=== PATIENT | male | born 1965 | race Caucasian/White ===

== ENCOUNTER → 2016-11-29 | Outpatient (CLI) | payer OTHER ==
--- NOTE | 2016-11-29 10:09 | REP ---
Clinical: Primary hypertension . Comparison: 03/26/2014 . Technique: PA and lateral. Findings: The mediastinum and cardiac silhouette are normal. The lung esquivel are clear and without acute consolidation, effusion, or pneumothorax. The skeletal structures are intact and normal. Impression: 1. No acute cardiopulmonary process. Signed by Kulwinder Puckett MD 11/29/2016 10:00 A
[2016-11-29 10:21] LABS: MEAN CORPUSCULAR HEMOGLOBIN 30.5 pg (27.0-33.0); MEAN CORPUSCULAR HGB CONC 34.2 g/dl (32.0-36.5); MEAN CORPUSCULAR VOLUME 89.2 fl (80.0-96.0); RED CELL DISTRIBUTION WIDTH 12.6 % (11.5-14.5); WHITE BLOOD COUNT 5.7 K/mm3 (4.0-10.0)
[2016-11-29 10:43] LABS: ALBUMIN 3.8 GM/DL (3.2-5.2); ALBUMIN/GLOBULIN RATIO 0.97 (1.00-1.93); ALKALINE PHOSPHATASE 78 U/L (45-117); ALT/SGPT 48 U/L (12-78); ANION GAP 8 MEQ/L (8-16); AST/SGOT 19 U/L (15-37); BILIRUBIN,TOTAL 0.4 MG/DL (0.2-1.0); BLOOD UREA NITROGEN 23 MG/DL (7-18); CALCIUM LEVEL 9.2 MG/DL (8.5-10.1); CARBON DIOXIDE LEVEL 28 MEQ/L (21-32); CHLORIDE LEVEL 99 MEQ/L (98-107); CHOLESTEROL LEVEL 186 MG/DL (<200); CREATININE FOR GFR 1.02 MG/DL (0.70-1.30); GLOMERULAR FILTRATION RATE > 60.0 (>60); POTASSIUM SERUM 4.6 MEQ/L (3.5-5.1); SODIUM LEVEL 135 MEQ/L (136-145); TOTAL PROTEIN 7.7 GM/DL (6.4-8.2); TRIGLYCERIDES LEVEL 359 MG/DL (<150)
[2016-11-29 10:46] LABS: GLUCOSE, FASTING 411 MG/DL (70-105)
--- NOTE | 2016-11-30 05:21 | ECGEPIP ---
Stationary ECG Study [facility] Test Date: 2016-11-29 Pat Name: ANGEL HOFFMAN Department: Room: - Gender: M Manager Pe: CHRISTOPHER : 1965 Requested By: Tabatha Gipson Order Number: [id number] Reading MD: Rian Fleming Measurements Intervals Post Rate: 95 P: 33 IN: 176 QRS: 11 QRSD: 117 T: -2 QT: 339 QTc: 426 Interpretive Statements Normal sinus rhythm Intraventricular conduction delay No significant change when compared to prior tracing of 11/18/2014 Electronically Signed On 11-30-2016 5:20:50 EDT by Rian Fleming
== END ==
LOC: M LAB 09:33
PROVIDERS: ATTEND Family Medicine
DX: I10 Essential (primary) hypertension (principal)

== ENCOUNTER → 2017-01-11 | Outpatient (REF) | payer OTHER ==
[~2017-01-11] MED LIST: ASPI1TAB PO; HYDR25TAB PO; JANU100T PO; KEFL500C7 PO; METF1000 PO; PRAV40TA2 PO; TYLETAB14 PO; VALS1TAB47 PO; VICO10TA11 PO
== END ==
LOC: M LAB REF 16:50
PROVIDERS: ATTEND Podiatrist
DX: M86.171 Other acute osteomyelitis, right ankle and foot (principal)

== ENCOUNTER → 2017-02-27 | Outpatient (CLI) | payer OTHER ==
[2017-02-27 11:04] LABS: MEAN CORPUSCULAR HEMOGLOBIN 31.2 pg (27.0-33.0); MEAN CORPUSCULAR HGB CONC 34.9 g/dl (32.0-36.5); MEAN CORPUSCULAR VOLUME 89.2 fl (80.0-96.0); RED CELL DISTRIBUTION WIDTH 13.4 % (11.5-14.5); WHITE BLOOD COUNT 5.4 K/mm3 (4.0-10.0)
[2017-02-27 11:23] LABS: ALBUMIN 3.8 GM/DL (3.2-5.2); ALBUMIN/GLOBULIN RATIO 0.97 (1.00-1.93); ALKALINE PHOSPHATASE 59 U/L (45-117); ALT/SGPT 76 U/L (12-78); ANION GAP 7 MEQ/L (8-16); AST/SGOT 34 U/L (15-37); BILIRUBIN,TOTAL 0.5 MG/DL (0.2-1.0); BLOOD UREA NITROGEN 16 MG/DL (7-18); CALCIUM LEVEL 8.9 MG/DL (8.5-10.1); CARBON DIOXIDE LEVEL 29 MEQ/L (21-32); CHLORIDE LEVEL 100 MEQ/L (98-107); CHOLESTEROL LEVEL 147 MG/DL (<200); CREATININE FOR GFR 1.08 MG/DL (0.70-1.30); GLOMERULAR FILTRATION RATE > 60.0 (>56); GLUCOSE, FASTING 260 MG/DL (70-105); POTASSIUM SERUM 4.4 MEQ/L (3.5-5.1); SODIUM LEVEL 136 MEQ/L (136-145); TOTAL PROTEIN 7.7 GM/DL (6.4-8.2); TRIGLYCERIDES LEVEL 220 MG/DL (<150)
== END ==
LOC: M LAB 10:22
PROVIDERS: ATTEND Family Medicine
DX: I10 Essential (primary) hypertension (principal); E03.9 Hypothyroidism, unspecified; E11.9 Type 2 diabetes mellitus without complications

== ENCOUNTER → 2017-09-03 | Outpatient (CLI) | payer OTHER ==
[2017-09-03 12:48] LABS: ESTIMATED AVERAGE GLUCOSE 255 MG/DL (60-110); HEMOGLOBIN A1c 10.5 %
[2017-09-03 12:52] LABS: GLUCOSE, FASTING 244 MG/DL (70-105)
== END ==
LOC: M LAB 11:17
DX: E11.9 Type 2 diabetes mellitus without complications (principal); I10 Essential (primary) hypertension

== ENCOUNTER → 2018-07-30 | Outpatient (CLI) | payer OTHER ==
[2018-07-30 12:20] LABS: HEMATOCRIT 45.2 % (42.0-52.0); HEMOGLOBIN 15.4 g/dl (13.5-17.5); MEAN CORPUSCULAR HEMOGLOBIN 29.9 pg (27.0-33.0); MEAN CORPUSCULAR HGB CONC 34.1 g/dl (32.0-36.5); MEAN CORPUSCULAR VOLUME 87.8 fl (80.0-96.0); PLATELET COUNT, AUTOMATED 243 10^3/uL (150-450); RED BLOOD COUNT 5.15 10^6/uL (4.30-6.10); RED CELL DISTRIBUTION WIDTH 12.3 % (11.5-14.5); WHITE BLOOD COUNT 6.7 10^3/uL (4.0-10.0)
[2018-07-30 12:50] LABS: ALBUMIN 3.8 GM/DL (3.2-5.2); ALBUMIN/GLOBULIN RATIO 1.03 (1.00-1.93); ALKALINE PHOSPHATASE 73 U/L (45-117); ALT/SGPT 38 U/L (12-78); ANION GAP 7 MEQ/L (8-16); AST/SGOT 16 U/L (7-37); BILIRUBIN,TOTAL 0.5 MG/DL (0.2-1.0); BLOOD UREA NITROGEN 23 MG/DL (7-18); CALCIUM LEVEL 9.2 MG/DL (8.5-10.1); CARBON DIOXIDE LEVEL 29 MEQ/L (21-32); CHLORIDE LEVEL 100 MEQ/L (98-107); CHOLESTEROL LEVEL 180 MG/DL (<200); CHOLESTEROL RISK RATIO 6.206 (<5); CREATININE FOR GFR 1.12 MG/DL (0.70-1.30); GLOMERULAR FILTRATION RATE > 60.0 (>56); GLUCOSE, FASTING 377 MG/DL (70-100); HDL CHOLESTEROL 29 MG/DL (>40); LDL CHOLESTEROL 122 MG/DL (<100); NON-HDL-C 151 MG/DL; POTASSIUM SERUM 4.6 MEQ/L (3.5-5.1); PROSTATIC SPECIFIC AG MONITOR 0.4 NG/ML (< 4.0); SODIUM LEVEL 136 MEQ/L (136-145); TESTOSTERONE 205 NG/DL (241-827); TOTAL PROTEIN 7.5 GM/DL (6.4-8.2); TRIGLYCERIDES LEVEL 147 MG/DL (<150)
[2018-07-30 13:13] LABS: ESTIMATED AVERAGE GLUCOSE 292 MG/DL (60-110); HEMOGLOBIN A1c 11.8 %
== END ==
LOC: M LAB 11:28
DX: M54.30 Sciatica, unspecified side (principal); E11.9 Type 2 diabetes mellitus without complications; M16.12 Unilateral primary osteoarthritis, left hip; M25.78 Osteophyte, vertebrae; M51.36 Other intervertebral disc degeneration, lumbar region; M51.37 Other intervertebral disc degeneration, lumbosacral region
CPT/HCPCS: 72110

== ENCOUNTER → 2018-08-02 | Outpatient (CLI) | payer OTHER | LOC: M RAD 08:55 | DX: I82.432 Acute embolism and thrombosis of left popliteal vein (principal); I82.412 Acute embolism and thrombosis of left femoral vein; M79.662 Pain in left lower leg | CPT/HCPCS: 93971 ==

== ENCOUNTER → 2019-01-13 | Outpatient (CLI) | payer OTHER ==
[~2019-01-13] MED LIST changes: -ASPI1TAB PO; +ASPI81TA26 PO; +KEFL500C17 PO; -KEFL500C7 PO; -METF1000 PO; +METF10004 PO; -VALS1TAB47 PO; +VALS1TAB67 PO
[2019-01-13 11:33] LABS: HEMOGLOBIN A1c 9.2 %
[2019-01-13 11:34] LABS: HEMATOCRIT 41.1 % (42.0-52.0); HEMOGLOBIN 13.7 g/dl (13.5-17.5); MEAN CORPUSCULAR HEMOGLOBIN 29.3 pg (27.0-33.0); MEAN CORPUSCULAR HGB CONC 33.3 g/dl (32.0-36.5); PLATELET COUNT, AUTOMATED 259 10^3/uL (150-450); RED BLOOD COUNT 4.67 10^6/uL (4.30-6.10); WHITE BLOOD COUNT 4.8 10^3/uL (4.0-10.0)
[2019-01-13 11:48] LABS: ALBUMIN 3.7 GM/DL (3.2-5.2); ALT/SGPT 42 U/L (12-78); BILIRUBIN,TOTAL 0.5 MG/DL (0.2-1.0); BLOOD UREA NITROGEN 17 MG/DL (7-18); CALCIUM LEVEL 9.1 MG/DL (8.5-10.1); CARBON DIOXIDE LEVEL 30 MEQ/L (21-32); CHLORIDE LEVEL 106 MEQ/L (98-107); CHOLESTEROL LEVEL 120 MG/DL (<200); CHOLESTEROL RISK RATIO 3.333 (<5); CREATININE FOR GFR 0.92 MG/DL (0.70-1.30); GLOMERULAR FILTRATION RATE > 60.0 (>56); GLUCOSE, FASTING 114 MG/DL (70-100); HDL CHOLESTEROL 36 MG/DL (>40); LDL CHOLESTEROL 71 MG/DL (<100); NON-HDL-C 84 MG/DL; POTASSIUM SERUM 4.6 MEQ/L (3.5-5.1); PROSTATIC SPECIFIC AG MONITOR 0.36 NG/ML (< 4.00); SODIUM LEVEL 140 MEQ/L (136-145); TOTAL PROTEIN 7.4 GM/DL (6.4-8.2); TRIGLYCERIDES LEVEL 67 MG/DL (<150)
[2019-01-13 11:49] LABS: TESTOSTERONE 289 NG/DL (241-827); TOTAL 25(OH) VITAMIN D 25.5 NG/ML (30.0-100.0)
== END ==
LOC: M LAB 10:19
PROVIDERS: ATTEND Family Medicine
DX: R53.83 Other fatigue (principal); I10 Essential (primary) hypertension; E11.9 Type 2 diabetes mellitus without complications

== ENCOUNTER → 2019-10-22 | Outpatient (CLI) | payer OTHER ==
[2019-10-22 09:32] LABS: HEMATOCRIT 44.1 % (42.0-52.0); HEMOGLOBIN 14.6 g/dl (13.5-17.5); MEAN CORPUSCULAR HEMOGLOBIN 29.7 pg (27.0-33.0); MEAN CORPUSCULAR HGB CONC 33.1 g/dl (32.0-36.5); MEAN CORPUSCULAR VOLUME 89.6 fl (80.0-96.0); PLATELET COUNT, AUTOMATED 263 10^3/uL (150-450); RED BLOOD COUNT 4.92 10^6/uL (4.30-6.10); WHITE BLOOD COUNT 7.2 10^3/uL (4.0-10.0)
[2019-10-22 10:02] LABS: HEMOGLOBIN A1c 8.9 %
[2019-10-22 10:07] LABS: ALBUMIN 3.9 GM/DL (3.2-5.2); ALT/SGPT 51 U/L (12-78); BILIRUBIN,TOTAL 0.5 MG/DL (0.2-1.0); BLOOD UREA NITROGEN 25 MG/DL (7-18); CALCIUM LEVEL 9.1 MG/DL (8.5-10.1); CARBON DIOXIDE LEVEL 27 MEQ/L (21-32); CHLORIDE LEVEL 105 MEQ/L (98-107); CHOLESTEROL LEVEL 136 MG/DL (<200); CREATININE FOR GFR 1.04 MG/DL (0.70-1.30); GLOMERULAR FILTRATION RATE > 60.0 (>56); GLUCOSE, FASTING 169 MG/DL (70-100); HDL CHOLESTEROL 32 MG/DL (>40); LDL CHOLESTEROL 83 MG/DL (<100); NON-HDL-C 104 MG/DL; POTASSIUM SERUM 4.9 MEQ/L (3.5-5.1); SODIUM LEVEL 140 MEQ/L (136-145); TESTOSTERONE 269 NG/DL (241-827); TOTAL PROTEIN 7.4 GM/DL (6.4-8.2); TRIGLYCERIDES LEVEL 105 MG/DL (<150)
== END ==
LOC: M LAB 08:20
PROVIDERS: ATTEND Family Medicine
DX: I10 Essential (primary) hypertension (principal)

== ENCOUNTER 2020-12-29 15:10 | Emergency (ER) | payer OTHER ==
[~2020-12-29] VITALS: Ht 200.7 cm; Wt 152.3 kg
[~2020-12-29 15:10] MED LIST changes: +HYDR-3490 PO; -HYDR25TAB PO
[2020-12-29] MEDS ORDERED: MORPHINE 4 MG/ML 1ML VIAL/SYRINGE (J2270) IV ONE (17:25)
[2020-12-29] MEDS ORDERED: LIDOCAINE 5% (LIDODERM) PATCH TD ONE (17:25)
[2020-12-29] MEDS ORDERED: ONDANSETRON 4MG/2ML VIAL IV ONE (17:25)
[2020-12-29] MEDS ORDERED: CYCLOBENZAPRINE 10MG TABLET PO ONE (17:25)
[2020-12-29 18:14] LABS: APPEARANCE, URINE CLEAR (CLEAR); BACTERIA, URINE AUTO NEGATIVE (NEGATIVE); BILIRUBIN, URINE AUTO NEGATIVE (NEGATIVE); BLOOD, URINE BLOOD 2+ (NEGATIVE); COLOR, URINE YELLOW (YELLOW); GLUCOSE, URINE (UA) AUTO 3+ mg/dL (NEGATIVE); KETONE, URINE AUTO NEGATIVE (NEGATIVE); LEUKOCYTE ESTERASE, URINE AUTO NEGATIVE (NEGATIVE); NITRITE, URINE AUTO NEGATIVE (NEGATIVE); PROTEIN, URINE AUTO 2+ mg/dL (NEGATIVE); RBC, URINE AUTO 7 /HPF (0-3); SPECIFIC GRAVITY URINE AUTO 1.013 (1.002-1.035); SQUAMOUS EPITHELIAL CELL UR AU 0 /HPF (0-6); UROBILINOGEN, URINE AUTO 0.2 mg/dL (0.0-2.0); WBC, URINE AUTO 0 /HPF (0-3)
[2020-12-29 18:16] LABS: BASO % 0.3 % (0.0-1.0); EOS % 0.1 % (0.0-3.0); HEMATOCRIT 46.6 % (42.0-52.0); HEMOGLOBIN 15.4 g/dl (13.5-17.5); LYMPH # 1.1 10^3/uL (1.5-5.0); LYMPH % 11.5 % (24.0-44.0); MEAN CORPUSCULAR VOLUME 87.8 fl (80.0-96.0); MONO # 0.5 10^3/uL (0.0-0.8); MONO % 5.5 % (2.0-8.0); NEUTROPHILS # 7.8 10^3/uL (1.5-8.5); NEUTROPHILS % 82.1 % (36.0-66.0); PLATELET COUNT, AUTOMATED 271 10^3/uL (150-450); RED BLOOD COUNT 5.31 10^6/uL (4.30-6.10); WHITE BLOOD COUNT 9.5 10^3/uL (4.0-10.0)
[2020-12-29 18:42] LABS: BLOOD UREA NITROGEN 19 MG/DL (7-18); CALCIUM LEVEL 10.3 MG/DL (8.5-10.1); CARBON DIOXIDE LEVEL 27 MEQ/L (21-32); CHLORIDE LEVEL 104 MEQ/L (98-107); CREATININE FOR GFR 1.01 MG/DL (0.70-1.30); GLOMERULAR FILTRATION RATE > 60.0 (>56); GLUCOSE, FASTING 291 MG/DL (70-100); POTASSIUM SERUM 4.4 MEQ/L (3.5-5.1); SODIUM LEVEL 137 MEQ/L (136-145)
[2020-12-29] MEDS ORDERED: ELIQ5TAB PO (19:39)
[2020-12-29] MEDS ORDERED: LOSA100T50 PO (19:42)
[2020-12-29] MEDS ORDERED: INSUDET (19:42)
[2020-12-29] MEDS ORDERED: LIDO5DIS41 TOP (20:46)
[2020-12-29] MEDS ORDERED: CYCL-707 PO (20:46)
[2020-12-29] MEDS ORDERED: **NOTE PATIENT COMMENT** MISC XX SCH (21:00)
--- NOTE | 2020-12-29 21:55 | REPVR ---
PROCEDURE INFORMATION: Exam: CT Abdomen And Pelvis Without Contrast Exam date and time: 12/29/2020 8:57 PM Age: 55 years old Clinical indication: Abdominal pain; Flank; Left; Additional info: L low back pain, hematuria, R/O stone TECHNIQUE: Imaging protocol: Computed tomography of the abdomen and pelvis without contrast. Radiation optimization: All CT scans at this facility use at least one of these dose optimization techniques: automated exposure control; mA and/or kV adjustment per patient size (includes targeted exams where dose is matched to clinical indication); or iterative reconstruction. COMPARISON: CR Spine. Lumbosacral, complete 07/30/2018 12:10 PM FINDINGS: Lungs: Minimal bibasilar fibro-atelectatic change. There is an ovoid nodule in the lateral lingular tip measuring 10 x 18 x 15 mm. Liver: Normal. No mass. Gallbladder and bile ducts: Normal. No calcified stones. No ductal dilation. Pancreas: Normal. No ductal dilation. Spleen: Normal. No splenomegaly. Adrenal glands: Normal. No mass. Kidneys and ureters: Slightly asymmetric left perinephric stranding with mild left hydronephrosis and minimal left hydroureter with periureteral edema which extends to a distal left ureteral calculus measuring 3 x 4 x 4 mm located approximately 1 cm above the left UVJ. Stomach and bowel: Mild stool throughout much of the proximal colon. The distal colon is collapsed or contracted with question of slight colonic wall thickening distal to the mid descending colon. Appendix: A normal appendix is seen. Intraperitoneal space: Unremarkable. No free air. No significant fluid collection. Vasculature: There is minimal atherosclerotic calcification of the abdominal aorta. Lymph nodes: Unremarkable. No enlarged lymph nodes. Urinary bladder: Unremarkable as visualized. Reproductive: Unremarkable as visualized. Bones/joints: Unremarkable. No acute fracture. Soft tissues: Unremarkable. IMPRESSION: 1. Distal left ureteral calculus measuring 3 x 4 x 4 mm located approximately 1 cm above the left UVJ with mild secondary obstructive uropathy of the left upper tract. 2. Ovoid noncalcified nodule in the lateral lingular tip measuring 10 x 15 x 18 mm. For both low risk and high risk patients, consider CT Chest at 3 months, PET/CT, or biopsy. (Reference: Benigno) 3. Question of minimal nonspecific left colitis distal to the mid transverse colon. REFERENCES: Benigno Faustin et al. Guidelines for Management of Incidental Pulmonary Nodules Detected on CT Images: From the Fleischner Society 2017. Radiology. 2017;284(1):228-243. Electronically signed by: Bear Aquino On 12/29/2020 21:54:40 PM
[2020-12-29] MEDS ORDERED: FLOM0.4C39 PO (22:08)
[2020-12-29] MEDS ORDERED: NORCO 5/325MG TABLET (BULK FOR ED) PO ONE (22:10)
[2020-12-29] MEDS ORDERED: HYDR-3713 PO (22:11)
[2020-12-29 22:29] VITALS: BP 134/94
--- NOTE | 2021-01-01 16:15 | ED PDOC ---
Post-Departure Follow-Up dr red faxed formal report of ct abd/p for fu Nicolas Daigle MD January 01, 2021 16:15
== END 2020-12-29 22:44 | disposition home or self-care (01) ==
LOC: M ED 15:10
DX: N20.1 Calculus of ureter (principal); N23 Unspecified renal colic; E11.649 Type 2 diabetes mellitus with hypoglycemia without coma; M62.830 Muscle spasm of back; K52.9 Noninfective gastroenteritis and colitis, unspecified; R91.8 Other nonspecific abnormal finding of lung field; I10 Essential (primary) hypertension; E78.5 Hyperlipidemia, unspecified; Z79.899 Other long term (current) drug therapy; Z79.4 Long term (current) use of insulin; Z79.01 Long term (current) use of anticoagulants
CPT/HCPCS: 74176; 80048; 81001; 85025; 96374; 96375; 99284; J2270; J2405

== ENCOUNTER → 2022-03-28 | Outpatient (CLI) | payer OTHER ==
[~2022-03-28] MED LIST changes: +CYCL-707 PO; +ELIQ5TAB PO; +FLOM0.4C39 PO; +HYDR-3713 PO; +INSUDET; +LIDO5DIS41 TOP; +LOSA100T45 PO
[2022-03-28 12:37] LABS: HEMATOCRIT 44.6 % (42.0-52.0); HEMOGLOBIN 14.7 g/dl (13.5-17.5); MEAN CORPUSCULAR HEMOGLOBIN 28.7 pg (27.0-33.0); MEAN CORPUSCULAR VOLUME 87.1 fl (80.0-96.0); PLATELET COUNT, AUTOMATED 230 10^3/uL (150-450); RED BLOOD COUNT 5.12 10^6/uL (4.30-6.10); WHITE BLOOD COUNT 5.7 10^3/uL (4.0-10.0)
[2022-03-28 13:23] LABS: ALBUMIN 3.8 GM/DL (3.2-5.2); ALT/SGPT 40 U/L (12-78); BILIRUBIN,TOTAL 0.6 MG/DL (0.2-1.0); BLOOD UREA NITROGEN 23 MG/DL (7-18); CALCIUM LEVEL 9.8 MG/DL (8.5-10.1); CARBON DIOXIDE LEVEL 27 MEQ/L (21-32); CHLORIDE LEVEL 106 MEQ/L (98-107); CHOLESTEROL LEVEL 182 MG/DL (<200); CHOLESTEROL RISK RATIO 4.666 (<5); CREATININE FOR GFR 1.23 MG/DL (0.70-1.30); GLOMERULAR FILTRATION RATE > 60.0 (>56); GLUCOSE, FASTING 169 MG/DL (70-100); HDL CHOLESTEROL 39 MG/DL (>40); LDL CHOLESTEROL 125 MG/DL (<100); NON-HDL-C 143 MG/DL; POTASSIUM SERUM 4.8 MEQ/L (3.5-5.1); SODIUM LEVEL 139 MEQ/L (136-145); TOTAL PROTEIN 7.4 GM/DL (6.4-8.2); TRIGLYCERIDES LEVEL 91 MG/DL (<150)
[2022-03-28 13:25] LABS: HEMOGLOBIN A1c 8.4 %
[2022-03-28 14:02] LABS: TESTOSTERONE 349 NG/DL (241-827)
[2022-03-29 12:20] LABS: PROSTATIC SPECIFIC AG MONITOR 0.51 NG/ML (< 4.00)
== END ==
LOC: M RAD 11:34
PROVIDERS: ATTEND Family Medicine
DX: I10 Essential (primary) hypertension (principal)

== ENCOUNTER → 2022-06-13 | Outpatient (CLI) | payer BC ==
[2022-06-13 12:24] LABS: HEMATOCRIT 43.9 % (42.0-52.0); HEMOGLOBIN 14.1 g/dl (13.5-17.5); MEAN CORPUSCULAR HEMOGLOBIN 29.1 pg (27.0-33.0); MEAN CORPUSCULAR HGB CONC 32.1 g/dl (32.0-36.5); MEAN CORPUSCULAR VOLUME 90.7 fl (80.0-96.0); PLATELET COUNT, AUTOMATED 231 10^3/uL (150-450); RED BLOOD COUNT 4.84 10^6/uL (4.30-6.10); WHITE BLOOD COUNT 7.3 10^3/uL (4.0-10.0)
[2022-06-13 12:55] LABS: HEMOGLOBIN A1c 7.9 %
[2022-06-13 13:30] LABS: ALBUMIN 3.4 GM/DL (3.2-5.2); ALT/SGPT 36 U/L (12-78); BILIRUBIN,TOTAL 0.3 MG/DL (0.2-1.0); BLOOD UREA NITROGEN 25 MG/DL (7-18); CALCIUM LEVEL 8.8 MG/DL (8.5-10.1); CARBON DIOXIDE LEVEL 29 MEQ/L (21-32); CHLORIDE LEVEL 104 MEQ/L (98-107); CHOLESTEROL LEVEL 154 MG/DL (<200); CREATININE FOR GFR 1.13 MG/DL (0.70-1.30); GLOMERULAR FILTRATION RATE > 60.0 (>56); GLUCOSE, FASTING 184 MG/DL (70-100); HDL CHOLESTEROL 35 MG/DL (>40); LDL CHOLESTEROL 70 MG/DL (<100); NON-HDL-C 119 MG/DL; POTASSIUM SERUM 4.6 MEQ/L (3.5-5.1); SODIUM LEVEL 138 MEQ/L (136-145); TOTAL PROTEIN 6.9 GM/DL (6.4-8.2); TRIGLYCERIDES LEVEL 244 MG/DL (<150)
[2022-06-13 13:58] LABS: TESTOSTERONE 292 NG/DL (241-827); TOTAL 25(OH) VITAMIN D 28.1 NG/ML (30.0-100.0)
== END ==
LOC: M LAB 11:20
PROVIDERS: ATTEND Family Medicine
DX: I10 Essential (primary) hypertension (principal)

== ENCOUNTER → 2022-08-12 | Outpatient (CLI) | payer BC | LOC: M RAD 14:20 | PROVIDERS: ATTEND Physician Assistant | DX: M47.896 Other spondylosis, lumbar region (principal) ==

== ENCOUNTER → 2022-10-06 | Outpatient (CLI) | payer BC ==
[2022-10-06 10:26] LABS: PLATELET COUNT, AUTOMATED 237 10^3/uL (150-450)
[2022-10-06 10:48] LABS: INR 1.09; PROTHROMBIN TIME 14.3 SECONDS (12.5-14.5)
[2022-10-06 10:49] LABS: PARTIAL THROMBOPLASTIN TIME 33.1 SECONDS (24.8-34.2)
== END ==
LOC: M LAB 09:16
PROVIDERS: ATTEND Physician Assistant
DX: M47.896 Other spondylosis, lumbar region (principal)

== ENCOUNTER → 2022-10-06 | Outpatient (CLI) | payer BC ==
[2022-10-06 10:26] LABS: HEMATOCRIT 46.4 % (42.0-52.0); HEMOGLOBIN 15.3 g/dl (13.5-17.5); MEAN CORPUSCULAR HEMOGLOBIN 29.5 pg (27.0-33.0); MEAN CORPUSCULAR VOLUME 89.4 fl (80.0-96.0); PLATELET COUNT, AUTOMATED 237 10^3/uL (150-450); RED BLOOD COUNT 5.19 10^6/uL (4.30-6.10); WHITE BLOOD COUNT 6.2 10^3/uL (4.0-10.0)
[2022-10-06 11:19] LABS: THYROID STIMULATING HORMONE 2.753 uIU/ML (0.55-4.78)
[2022-10-06 11:20] LABS: TESTOSTERONE 366 NG/DL (241-827); TOTAL 25(OH) VITAMIN D 33.8 NG/ML (20.0-100.0)
[2022-10-06 11:25] LABS: ALBUMIN 3.8 G/DL (3.2-5.2); ALKALINE PHOSPHATASE 71 U/L (46-116); ALT/SGPT 34 U/L (7.0-40); AST/SGOT 33 U/L (<34); BILIRUBIN,TOTAL 0.5 MG/DL (0.3-1.2); BLOOD UREA NITROGEN 32 MG/DL (9-23); CALCIUM LEVEL 9.2 MG/DL (8.5-10.1); CARBON DIOXIDE LEVEL 25 MMOL/L (20-31); CHLORIDE LEVEL 106 MMOL/L (98-107); CHOLESTEROL LEVEL 140 MG/DL (<200); CHOLESTEROL RISK RATIO 4.53 (<5); GLOMERULAR FILTRATION RATE > 60.0 (>56); GLUCOSE, FASTING 125 MG/DL (60-100); HDL CHOLESTEROL 30.9 MG/DL (>40); LDL CHOLESTEROL 86.7 MG/DL (<100); NON-HDL-C 109 MG/DL; SODIUM LEVEL 140 MMOL/L (136-145); TRIGLYCERIDES LEVEL 112 MG/DL (<150)
== END ==
LOC: M LAB 09:12
PROVIDERS: ATTEND Family Medicine
DX: R53.83 Other fatigue (principal); I10 Essential (primary) hypertension
CPT/HCPCS: 36415; 80053; 80061; 82306; 84403; 84443; 85027; G0103

== ENCOUNTER → 2022-11-10 | Outpatient (CLI) | payer BC | LOC: M WHC 10:36 | PROVIDERS: ATTEND Physician Assistant | DX: M79.605 Pain in left leg (principal) ==

== ENCOUNTER → 2023-05-15 | Outpatient (CLI) | payer BC ==
[~2023-05-15] MED LIST changes: -LOSA100T45 PO; +LOSA100T46 PO
[2023-05-15 13:27] LABS: BLOOD UREA NITROGEN 24 MG/DL (9-23); GLOMERULAR FILTRATION RATE > 60.0 (>56)
== END ==
LOC: M LAB 12:11
PROVIDERS: ATTEND Psychiatry & Neurology Neurology
DX: I10 Essential (primary) hypertension (principal)

== ENCOUNTER → 2023-09-10 | Outpatient (CLI) | payer BC ==
[2023-09-10 11:51] LABS: HEMATOCRIT 47.5 % (42.0-52.0); HEMOGLOBIN 15.3 g/dl (13.5-17.5); MEAN CORPUSCULAR HEMOGLOBIN 29.5 pg (27.0-33.0); MEAN CORPUSCULAR HGB CONC 32.2 g/dl (32.0-36.5); MEAN CORPUSCULAR VOLUME 91.7 fl (80.0-96.0); PLATELET COUNT, AUTOMATED 256 10^3/uL (150-450); RED BLOOD COUNT 5.18 10^6/uL (4.30-6.10); WHITE BLOOD COUNT 6.2 10^3/uL (4.0-10.0)
[2023-09-10 12:14] LABS: HEMOGLOBIN A1c 6.7 % (4.0-6.0)
[2023-09-10 12:25] LABS: ALBUMIN 3.7 G/DL (3.2-5.2); ALKALINE PHOSPHATASE 74 U/L (46-116); ALT/SGPT 31 U/L (7.0-40); AST/SGOT 21 U/L (<34); BILIRUBIN,TOTAL 0.6 MG/DL (0.3-1.2); BLOOD UREA NITROGEN 25 MG/DL (9-23); CALCIUM LEVEL 8.9 MG/DL (8.5-10.1); CARBON DIOXIDE LEVEL 29 MMOL/L (20-31); CHLORIDE LEVEL 106 MMOL/L (98-107); CHOLESTEROL LEVEL 178 MG/DL (<200); CHOLESTEROL RISK RATIO 5.63 (<5); CREATININE FOR GFR 1.13 MG/DL (0.70-1.30); GLOMERULAR FILTRATION RATE > 60.0 (>56); GLUCOSE, FASTING 96 MG/DL (60-100); HDL CHOLESTEROL 31.6 MG/DL (>40); NON-HDL-C 146.4 MG/DL; POTASSIUM SERUM 4.3 MMOL/L (3.5-5.1); PROSTATIC SPECIFIC AG MONITOR 0.72 NG/ML (< 4.00); SODIUM LEVEL 140 MMOL/L (136-145); THYROID STIMULATING HORMONE 2.778 uIU/ML (0.55-4.78); TRIGLYCERIDES LEVEL 77 MG/DL (<150)
[2023-09-10 12:27] LABS: TESTOSTERONE 419 NG/DL (241-827); TOTAL 25(OH) VITAMIN D 31.4 NG/ML (20.0-100.0)
== END ==
LOC: M LAB 10:11
PROVIDERS: ATTEND Family Medicine
DX: I10 Essential (primary) hypertension (principal); R53.83 Other fatigue

== ENCOUNTER → 2023-09-10 | Outpatient (CLI) | payer BC | LOC: M LAB 10:19 | PROVIDERS: ATTEND Nurse Practitioner Family | DX: E11.65 Type 2 diabetes mellitus with hyperglycemia (principal) ==

== ENCOUNTER → 2023-09-11 | Outpatient (REF) | payer BC ==
[2023-09-11 12:45] LABS: CREATININE, URINE 101.7 MG/DL
[2023-09-11 12:57] LABS: MAU/CREAT RATIO 608.6 MCG/MG (0.0-30.0)
== END ==
LOC: M LAB REF 11:15
PROVIDERS: ATTEND Nurse Practitioner Family
DX: E11.65 Type 2 diabetes mellitus with hyperglycemia (principal)

== ENCOUNTER → 2023-12-03 | Outpatient (CLI) | payer BC ==
[2023-12-03 10:48] LABS: HEMATOCRIT 47.5 % (42.0-52.0); HEMOGLOBIN 15.6 g/dl (13.5-17.5); MEAN CORPUSCULAR HGB CONC 32.8 g/dl (32.0-36.5); MEAN CORPUSCULAR VOLUME 88.3 fl (80.0-96.0); PLATELET COUNT, AUTOMATED 218 10^3/uL (150-450); RED BLOOD COUNT 5.38 10^6/uL (4.30-6.10); WHITE BLOOD COUNT 6.1 10^3/uL (4.0-10.0)
[2023-12-03 11:11] LABS: ALBUMIN 3.8 G/DL (3.2-5.2); ALKALINE PHOSPHATASE 86 U/L (46-116); ALT/SGPT 44 U/L (7.0-40); AST/SGOT 25 U/L (<34); BILIRUBIN,TOTAL 0.4 MG/DL (0.3-1.2); BLOOD UREA NITROGEN 21 MG/DL (9-23); CALCIUM LEVEL 10.1 MG/DL (8.5-10.1); CARBON DIOXIDE LEVEL 31 MMOL/L (20-31); CHLORIDE LEVEL 105 MMOL/L (98-107); CHOLESTEROL LEVEL 140 MG/DL (<200); CHOLESTEROL RISK RATIO 4.03 (<5); CREATININE FOR GFR 1.12 MG/DL (0.70-1.30); GLOMERULAR FILTRATION RATE > 60.0 (>56); GLUCOSE, FASTING 150 MG/DL (60-100); HDL CHOLESTEROL 34.7 MG/DL (>40); LDL CHOLESTEROL 78.3 MG/DL (<100); NON-HDL-C 105.3 MG/DL; POTASSIUM SERUM 5.1 MMOL/L (3.5-5.1); SODIUM LEVEL 139 MMOL/L (136-145); TOTAL PROTEIN 7.3 G/DL (5.7-8.2); TRIGLYCERIDES LEVEL 135 MG/DL (<150)
[2023-12-03 11:13] LABS: THYROID STIMULATING HORMONE 3.845 uIU/ML (0.55-4.78); TOTAL 25(OH) VITAMIN D 30.9 NG/ML (20.0-100.0)
[2023-12-03 11:23] LABS: HEMOGLOBIN A1c 7.5 % (4.0-6.0)
== END ==
LOC: M LAB 10:12
PROVIDERS: ATTEND Family Medicine
DX: R31.1 Benign essential microscopic hematuria (principal)

== ENCOUNTER → 2023-12-05 | Outpatient (REF) | payer BC ==
[2023-12-05 12:51] LABS: MAU/CREAT RATIO 530.7 MCG/MG (0.0-30.0)
== END ==
LOC: M LAB REF 10:48
PROVIDERS: ATTEND Family Medicine
DX: E07.9 Disorder of thyroid, unspecified (principal)

== ENCOUNTER → 2024-04-25 | Outpatient (CLI) | payer BC | LOC: M RAD 15:58 | PROVIDERS: ATTEND Internal Medicine Nephrology | DX: N20.0 Calculus of kidney (principal) ==

== ENCOUNTER → 2024-07-28 | Outpatient (CLI) | payer BC ==
[2024-07-28 12:31] LABS: HEMATOCRIT 45.6 % (42.0-52.0); HEMOGLOBIN 14.9 g/dl (13.5-17.5); MEAN CORPUSCULAR HEMOGLOBIN 30.3 pg (27.0-33.0); MEAN CORPUSCULAR HGB CONC 32.7 g/dl (32.0-36.5); MEAN CORPUSCULAR VOLUME 92.9 fl (80.0-96.0); PLATELET COUNT, AUTOMATED 249 10^3/uL (150-450); RED BLOOD COUNT 4.91 10^6/uL (4.30-6.10); WHITE BLOOD COUNT 6.5 10^3/uL (4.0-10.0)
[2024-07-28 13:04] LABS: ALBUMIN 3.8 G/DL (3.2-5.2); BILIRUBIN,TOTAL 0.4 MG/DL (0.3-1.2); CALCIUM LEVEL 9.6 MG/DL (8.5-10.1); CHOLESTEROL RISK RATIO 5.53 (<5); CREATININE FOR GFR 1.36 MG/DL (0.70-1.30); GLOMERULAR FILTRATION RATE 57.5 (>56); HDL CHOLESTEROL 28.9 MG/DL (>40); LDL CHOLESTEROL 106.1 MG/DL (<100); NON-HDL-C 131.1 MG/DL; POTASSIUM SERUM 4.7 MMOL/L (3.5-5.1); PROSTATIC SPECIFIC AG MONITOR 0.6 NG/ML (< 4.00); TOTAL PROTEIN 7.7 G/DL (5.7-8.2)
[2024-07-28 13:05] LABS: THYROID STIMULATING HORMONE 2.774 uIU/ML (0.55-4.78); TOTAL 25(OH) VITAMIN D 29.8 NG/ML (20.0-100.0)
[2024-07-28 13:20] LABS: HEMOGLOBIN A1c 6.3 % (4.0-6.0)
== END ==
LOC: M RAD 11:30
PROVIDERS: ATTEND Family Medicine
DX: R53.83 Other fatigue (principal); I10 Essential (primary) hypertension

== ENCOUNTER → 2024-08-11 | Outpatient (CLI) | payer BC | LOC: M RAD 13:32 | PROVIDERS: ATTEND Family Medicine | DX: M16.0 Bilateral primary osteoarthritis of hip (principal) ==

== ENCOUNTER → 2024-10-04 | Outpatient (CLI) | payer BC ==
[2024-10-04 10:48] LABS: BLOOD UREA NITROGEN 31 MG/DL (9-23); CREATININE FOR GFR 1.16 MG/DL (0.70-1.30); GLOMERULAR FILTRATION RATE > 60.0 (>56)
== END ==
LOC: M LAB 09:51
PROVIDERS: ATTEND Psychiatry & Neurology Neurology
DX: I10 Essential (primary) hypertension (principal)

== ENCOUNTER → 2024-11-14 | Outpatient (CLI) | payer BC | LOC: M PLAIMG 13:13 | PROVIDERS: ATTEND Physician Assistant Surgical | DX: M51.360 Other intervertebral disc degeneration, lumbar region with discogenic back pain only (principal) ==

== ENCOUNTER → 2024-12-29 | Outpatient (CLI) | payer BC ==
[~2024-12-29] MED LIST changes: -FLOM0.4C39 PO; +TAMS-18 PO
[2024-12-29 10:59] LABS: HEMATOCRIT 46.2 % (42.0-52.0); HEMOGLOBIN 15.2 g/dl (13.5-17.5); MEAN CORPUSCULAR HEMOGLOBIN 30.8 pg (27.0-33.0); MEAN CORPUSCULAR HGB CONC 32.9 g/dl (32.0-36.5); MEAN CORPUSCULAR VOLUME 93.5 fl (80.0-96.0); PLATELET COUNT, AUTOMATED 221 10^3/uL (150-450); RED BLOOD COUNT 4.94 10^6/uL (4.30-6.10)
[2024-12-29 11:14] LABS: HEMOGLOBIN A1c 6.9 % (4.0-6.0)
[2024-12-29 11:29] LABS: BILIRUBIN,TOTAL 0.4 MG/DL (0.3-1.2); CALCIUM LEVEL 9.4 MG/DL (8.5-10.1); CHOLESTEROL RISK RATIO 4.3 (<5); CREATININE FOR GFR 1.1 MG/DL (0.70-1.30); GLOMERULAR FILTRATION RATE 77.8 (>56); HDL CHOLESTEROL 30.9 MG/DL (>40); LDL CHOLESTEROL 79.3 MG/DL (<100); NON-HDL-C 102.1 MG/DL; POTASSIUM SERUM 4.6 MMOL/L (3.5-5.1); PROSTATIC SPECIFIC AG MONITOR 0.54 NG/ML (< 4.00); TOTAL PROTEIN 7.4 G/DL (5.7-8.2)
[2024-12-29 11:34] LABS: THYROID STIMULATING HORMONE 2.342 uIU/ML (0.55-4.78)
[2024-12-29 11:35] LABS: TOTAL 25(OH) VITAMIN D 26.4 NG/ML (20.0-100.0)
== END ==
LOC: M LAB 09:52
PROVIDERS: ATTEND Family Medicine
DX: I10 Essential (primary) hypertension (principal); R53.83 Other fatigue

== ENCOUNTER → 2025-01-09 | Outpatient (CLI) | payer BC | LOC: M PLAIMG 08:58 | PROVIDERS: ATTEND Internal Medicine Pulmonary Disease | DX: R91.8 Other nonspecific abnormal finding of lung field (principal); E04.1 Nontoxic single thyroid nodule; I25.10 Atherosclerotic heart disease of native coronary artery without angina pectoris ==

== ENCOUNTER → 2025-01-14 | Outpatient (CLI) | payer BC ==
[~2025-01-14] MED LIST changes: +LIDO1ADH93 TOP; -LIDO5DIS41 TOP
[2025-01-14 16:42] LABS: PLATELET COUNT, AUTOMATED 223 10^3/uL (150-450)
[2025-01-14 16:56] LABS: INR 0.97; PARTIAL THROMBOPLASTIN TIME 31.7 SECONDS (24.8-34.2); PROTHROMBIN TIME 13.2 SECONDS (12.5-14.5)
== END ==
LOC: M LAB 16:19
PROVIDERS: ATTEND Physician Assistant Surgical
DX: Z01.818 Encounter for other preprocedural examination (principal)

== ENCOUNTER → 2025-06-13 | Outpatient (CLI) | payer BC ==
[~2025-06-13] MED LIST changes: -PRAV40TA2 PO; +PRAV40TA85 PO
[2025-06-13 10:04] LABS: BASO # 0.1 10^3/uL (0.0-0.2); BASO % 0.8 % (0.0-1.0); EOS # 0.1 10^3/uL (0.0-0.5); EOS % 2.0 % (0.0-3.0); LYMPH # 1.5 10^3/uL (1.5-5.0); LYMPH % 22.4 % (24.0-44.0); MONO # 0.6 10^3/uL (0.0-0.8); MONO % 8.9 % (2.0-8.0); NEUTROPHILS # 4.4 10^3/uL (1.5-8.5); NEUTROPHILS % 65.7 % (36.0-66.0); PLATELET COUNT, AUTOMATED 231 10^3/uL (150-450)
[2025-06-13 10:23] LABS: INR 1.01
[2025-06-13 10:33] LABS: ALT/SGPT 36.0 U/L (7.0-40); AST/SGOT 25.0 U/L (<34); CALCIUM LEVEL 9.0 MG/DL (8.5-10.1); CARBON DIOXIDE LEVEL 28.0 MMOL/L (20-31); CHLORIDE LEVEL 106.0 MMOL/L (98-107); CHOLESTEROL LEVEL 119.0 MG/DL (<200); CHOLESTEROL RISK RATIO 4.35 (<5); CREATININE FOR GFR 1.06 MG/DL (0.70-1.30); GLOMERULAR FILTRATION RATE 81.4 (>56); LDL CHOLESTEROL 55.7 MG/DL (<100); NON-HDL-C 91.7 MG/DL; POTASSIUM SERUM 4.5 MMOL/L (3.5-5.1); SODIUM LEVEL 142.0 MMOL/L (136-145); TRIGLYCERIDES LEVEL 180.0 MG/DL (<150)
== END ==
LOC: M LAB 08:45
PROVIDERS: ATTEND Internal Medicine Cardiovascular Disease
DX: Z01.810 Encounter for preprocedural cardiovascular examination (principal)

== ENCOUNTER → 2025-07-06 | Outpatient (CLI) | payer BC ==
[2025-07-06 11:14] LABS: ALT/SGPT 38.0 U/L (7.0-40); AST/SGOT 26.0 U/L (<34); CALCIUM LEVEL 8.7 MG/DL (8.5-10.1); CARBON DIOXIDE LEVEL 29.0 MMOL/L (20-31); CHLORIDE LEVEL 105.0 MMOL/L (98-107); CREATININE FOR GFR 1.24 MG/DL (0.70-1.30); GLOMERULAR FILTRATION RATE 67.4 (>56); POTASSIUM SERUM 5.0 MMOL/L (3.5-5.1); SODIUM LEVEL 141.0 MMOL/L (136-145)
== END ==
LOC: M LAB 08:33
PROVIDERS: ATTEND Internal Medicine Cardiovascular Disease
DX: R73.03 Prediabetes (principal)